=== PATIENT | female | born 1990 | race Hispanic/Latino ===

== ENCOUNTER 2017-02-13 08:59 | Emergency (ER) | payer OTHER ==
[2017-02-13] MEDS ORDERED: NACL 0.9% 1000 ML 1,000 ML ONE (09:09)
[2017-02-13] MEDS ORDERED: MORPHINE ONE (09:57)
[2017-02-13] MEDS ORDERED: NACL 0.9% 1000 ML 1,000 ML IV ONE (09:58)
[2017-02-13] MEDS ORDERED: ZOFRAN IV ONE (09:58)
[2017-02-13] MEDS ORDERED: MORPHINE IV ONE (09:58)
--- NOTE | 2017-02-13 10:00 | Emergency Department Report ---
HPI - General Chief Complaint: Syncope Time Seen by Provider: 02/13/17 09:45 - [facility] HPI: Room 26 The patient is a 26-year-old female presenting with a chief complaint of chest pain and syncope. The patient just finished a series of exercises for physical training which included pushups, sit ups meningitic two-mile run. The patient states after the run away back to her vehicle she developed left-sided chest pain radiating to the left shoulder described as sharp in nature. The patient is uncertain if she developed shortness of breath but denied nausea and vomiting. The patient then had a syncopal episode and was unresponsive for approximately 1 minute. 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 Patient states she still has chest pain gives a score of 3/ 10. The patient states pain is been intermittent. Patient denies nausea or vomiting or pleurisy currently. The patient admits she has had intermittent chest pain for the past week. Of note approximately 3-4 weeks ago she flew to [facility] (5 hour flight) Location: Chest Duration: [see above] Quality: Sharp Severity: 3/10 Modifying factors: [see above] Context: [see above] Mode of transportation: [not driving] ED Past Medical Hx - Past Medical History Previous Medical History?: No - Surgical History Past Surgical History?: No - Family History Family history: no significant - Social History Smoking Status: Never Smoker Substance Use Type: None - Medications Home Medications: Home Medications Medication Instructions Recorded Confirmed Last Taken Type No Known Home Medications [No 02/13/17 02/13/17 Unknown History Reported Home Medications] ED Review of Systems ROS: Stated complaint: WEAKNESS/SYNCOPE Other details as noted in HPI Comment: All other systems reviewed and negative Constitutional: denies: chills, fever Eyes: denies: eye pain, eye discharge, vision change ENT: denies: ear pain, throat pain Respiratory: shortness of breath Cardiovascular: chest pain Endocrine: no symptoms reported Gastrointestinal: denies: abdominal pain, nausea, diarrhea Genitourinary: denies: urgency, dysuria, discharge Musculoskeletal: denies: back pain, joint swelling, arthralgia Skin: denies: rash, lesions Neurological: denies: headache, weakness, paresthesias Psychiatric: denies: anxiety, depression Physical Exam - Physical Exam Vital Signs: Vital Signs 02/13/17 02/13/17 09:08 09:21 Temperature 98.1 F Pulse Rate 118 H Respiratory 16 16 Rate Blood Pressure 126/86 O2 Sat by Pulse 99 99 Oximetry Physical Exam: GENERAL: The patient is well-developed well-nourished female sitting on stretcher eating English's not appearing to be in acute distress. [] HEENT: Normocephalic. Atraumatic. Extraocular motions are intact. Patient has moist mucous membranes. NECK: Supple. Trachea midline CHEST/LUNGS: Clear to auscultation. There is no respiratory distress noted. HEART/CARDIOVASCULAR: Regular. There is tachycardia. There is no gallop rub or murmur. ABDOMEN: Abdomen is soft, nontender. Patient has normal bowel sounds. There is no abdominal distention. SKIN: There is no rash. There is no edema. There is no diaphoresis. NEURO: The patient is awake, alert, and oriented. The patient is cooperative. The patient has no focal neurologic deficits. The patient has normal speech. Cranial nerves II through XII grossly intact, no drift MUSCULOSKELETAL: There is no evidence of acute injury. ED Course Vital Signs 02/13/17 02/13/17 09:08 09:21 Temperature 98.1 F Pulse Rate 118 H Respiratory 16 16 Rate Blood Pressure 126/86 O2 Sat by Pulse 99 99 Oximetry ED Medical Decision Making - Lab Data Result diagrams: 02/13/17 09:57 02/13/17 09:57 Laboratory Tests 02/13/17 02/13/17 02/13/17 09:57 09:57 09:57 WBC 13.8 H RBC 4.44 Hgb 13.2 Hct 40.9 MCV 92 MCH 30 MCHC 32 RDW 12.8 L Plt Count 301 Lymph % (Auto) 15.4 [place] % (Auto) 2.9 Eos % (Auto) 0.2 Baso % (Auto) 0.4 Lymph # 2.1 [place] # 0.4 Eos # 0.0 Baso # 0.0 Seg Neutrophils % 81.1 H Seg Neutrophils # 11.2 H PT 12.8 INR 0.97 APTT 26.9 Sodium 138 Potassium 4.5 Chloride 99.6 Carbon Dioxide 22 Anion Gap 21 BUN 10 Creatinine 0.7 Estimated GFR > 60 BUN/Creatinine Ratio 14.28 Glucose 132 H Calcium 9.2 Total Creatine Kinase 136 H CK-MB (CK-2) 1.6 CK-MB (CK-2) Rel Index 1.1 Troponin T < 0.010 NT-Pro-B Natriuret Pep 73.63 HCG, Qual 02/13/17 09:57 WBC RBC Hgb Hct MCV MCH MCHC RDW Plt Count Lymph % (Auto) [place] % (Auto) Eos % (Auto) Baso % (Auto) Lymph # [place] # Eos # Baso # Seg Neutrophils % Seg Neutrophils # PT INR APTT Sodium Potassium Chloride Carbon Dioxide Anion Gap BUN Creatinine Estimated GFR BUN/Creatinine Ratio Glucose Calcium Total Creatine Kinase CK-MB (CK-2) CK-MB (CK-2) Rel Index Troponin T NT-Pro-B Natriuret Pep HCG, Qual Negative - EKG Data -: EKG Interpreted by Me EKG shows normal: sinus rhythm Rate: tachycardia (115 bpm) - EKG Data When compared to previous EKG there are: previous EKG unavailable Interpretation: nonspecific ST-T wave vincenzo (biphasic T waves leads 3, V2) - Radiology Data Radiology results: report reviewed (CT head, CT chest), image reviewed (CT head , CT chest) CT head (read by radiologist)-cranial CT scan within normal limits. CT chest (read by radiologist) (-no evidence for pulmonary embolus. Unremarkable CT chest with contrast. - Differential Diagnosis PE, dysrhythmia, ACS, vasovagal syncope Critical care attestation.: If time is entered above; I have spent that time in minutes in the direct care of this critically ill patient, excluding procedure time. ED Disposition Clinical Impression: Chest pain, Syncope Disposition: OP ADMITTED IP TO THIS HOSP Is pt being admited?: Yes Does the pt Need Aspirin: Yes Condition: Fair Instructions: Chest Pain (ED), Syncope (ED) Referrals: PRIMARY CARE, [Primary Care Provider] - 3-5 Days Time of Disposition: 11:30 (hospitalist paged)
[2017-02-13 10:16] LABS: Basophils % (Auto) 0.4 % (0.0-1.8); Eosinophils % (Auto) 0.2 % (0.0-4.3); Hematocrit 40.9 % (30.3-42.9); Hemoglobin 13.2 gm/dl (10.1-14.3); Mean Corpuscular HGB Conc 32 % (30-34); Mean Corpuscular Hemoglobin 30 pg (28-32); Mean Corpuscular Volume 92 fl (79-97); Platelet Count 301 K/mm3 (140-440); Red Blood Count 4.44 M/mm3 (3.65-5.03); Red Cell Distribution Width 12.8 % (13.2-15.2); White Blood Count 13.8 K/mm3 (4.5-11.0)
[2017-02-13 10:23] LABS: INR 0.97 (0.87-1.13)
[2017-02-13 10:24] LABS: Partial Thromboplastin Time 26.9 Sec. (24.2-36.6)
[2017-02-13] MEDS ORDERED: NACL ONE (10:28)
[2017-02-13 10:32] LABS: Creatine Kinase MB 1.6 ng/mL (0.0-4.0)
[2017-02-13 10:33] LABS: Anion Gap 21 mmol/L; BUN/Creatinine Ratio 14.28; Blood Urea Nitrogen 10 mg/dL (7-17); Calcium 9.2 mg/dL (8.4-10.2); Carbon Dioxide 22 mmol/L (22-30); Chloride 99.6 mmol/L (98-107); Creatine Kinase 136 units/L (30-135); Glucose 132 mg/dL (65-100); Potassium 4.5 mmol/L (3.6-5.0); Sodium 138 mmol/L (137-145)
--- NOTE | 2017-02-13 11:16 | Cat Scan Report ---
CT HEAD WITHOUT CONTRAST: HISTORY: Syncope, dizziness. Serial contiguous axial images were obtained through the cranium. Intravenous contrast material was not administered. The ventricles are normal in size and appearance. There is no mass effect or midline shift. No areas of abnormally increased or decreased attenuation are seen. No mass lesion is seen. The mastoid air cells and visualized portions of the sinuses are normal. IMPRESSION: Cranial CT scan within normal limits.
--- NOTE | 2017-02-13 11:17 | Cat Scan Report ---
CTA CHEST: History: Chest pain, syncope. Technique: Helical CT following IV contrast. Pulmonary embolus protocol. Sagittal and coronal reformatted images. Rotational MIP images. Findings: Contrast bolus is satisfactory. No pulmonary embolus is identified. The thyroid gland, tracheobronchial tree, esophagus, heart, pericardium, mediastinal vessels, lung ponce and bony thorax are unremarkable. Impression: No evidence for pulmonary embolus. Unremarkable CT chest with contrast.
[2017-02-13 12:40] VITALS: BP 120/68
--- NOTE | 2017-02-13 12:46 | History and Physical Report ---
History of Present Illness Chief complaint: My chest felt tight, and i passed out History of present illness: 26 YO Female with no PMH presents to ED for evaluation. Pt states that she experienced intermittent pain in her chest for the past week. Pt experienced pain in her chest today and passed out after she completed her physical training test (push-ups, sit-ups, and 2 mile run) today. Pt states that she was walking back to her vehicle after her run and subsequently developed sharp , left-sided chest pain, 3/10, with pain radiating to the left shoulder. Pt denies fever, chills, palpitations, NVD, calf swelling, leg pain, hemoptysis, seizure, vertigo, BRBPR, prolonged immobility, individual/family history of DVT/ PE, productive cough, recent ill contacts, family history of premature , or enlarged heart, or sudden cardiac . Past History Past Medical History: No medical history, other (reviewed) Past Surgical History: No surgical history, Other (reviewed) Social history: no significant social history, , lives with family. denies: smoking, alcohol abuse, prescription drug abuse Family history: no significant family history (reviewed) Medications and Allergies Allergies Allergy/AdvReac Type Severity Reaction Status Date / Time No Known Allergies Allergy Unverified 02/13/17 09:08 Home Medications Medication Instructions Recorded Confirmed Last Taken Type No Known Home Medications [No 02/13/17 02/13/17 Unknown History Reported Home Medications] Review of Systems All systems: negative Cardiovascular: chest pain, syncope Exam - Constitutional Vitals: Temp Pulse Resp BP Pulse Ox 98.1 F 118 H 16 126/86 99 02/13/17 09:08 02/13/17 09:08 02/13/17 09:21 02/13/17 09:08 02/13/17 09:21 General appearance: Present: no acute distress, well-nourished - EENT Eyes: Present: PERRL ENT: hearing intact, clear oral mucosa - Neck Neck: Present: supple, normal ROM - Respiratory Respiratory effort: normal Respiratory: bilateral: CTA - Cardiovascular Heart Sounds: Present: S1 & S2. Absent: rub, click - Extremities Extremities: pulses symmetrical, No edema Peripheral Pulses: within normal limits - Abdominal General gastrointestinal: Present: soft, non-tender, non-distended, normal bowel sounds Female genitourinary: Present: normal - Integumentary Integumentary: Present: clear, warm, dry - Musculoskeletal Musculoskeletal: gait normal, strength equal bilaterally - Psychiatric Psychiatric: appropriate mood/affect, intact judgment & insight - Neurologic Neurologic: CNII-XII intact, moves all extremities Results - Labs CBC & Chem 7: 02/13/17 09:57 02/13/17 09:57 Labs: Abnormal lab results 02/13/17 02/13/17 Range/Units 09:57 09:57 WBC 13.8 H (4.5-11.0) K/mm3 RDW 12.8 L (13.2-15.2) % Seg Neutrophils % 81.1 H (40.0-70.0) % Seg Neutrophils # 11.2 H (1.8-7.7) K/mm3 Glucose 132 H (65-100) mg/dL Total Creatine Kinase 136 H (30-135) units/L Assessment and Plan - Patient Problems (1) ACS (acute coronary syndrome) Current Visit: Yes Status: Acute Plan to address problem: Chest Pain protocol: serial cardiac enzymes, ekg, telemetry, echo, supportive care, (2) Syncope Current Visit: Yes Status: Acute Qualifiers: Syncope type: S Encounter type: E Plan to address problem: CT head, telemetry monitoring, eeg, supportive care. (3) DVT prophylaxis Current Visit: Yes Status: Acute
== END 2017-02-13 12:41 | disposition admitted as inpatient to this hospital (09) ==
LOC: ED 08:59
DX: R55 Syncope and collapse (principal); R07.9 Chest pain, unspecified
CPT/HCPCS: 36415; 70450; 71275; 80048; 82550; 82553; 83880; 84484; 84703; 85025; 85610; 85730; 93005; 93010; 96360; 99284; J7030; Q9967; J2270; J2405